=== PATIENT | male | born 1955 | race Caucasian/White ===

== ENCOUNTER 2017-05-31 05:52 | Day surgery (SDC) | payer BC ==
[2017-05-31] MEDS ORDERED: Lactated Ringers 1,000 ML PRIMARY IV ONE ×2 (06:01→07:44)
[2017-05-31] MEDS ORDERED: Clindamycin 900mg (Premix) 50 ML IV ONE (06:01)
[2017-05-31] MEDS ORDERED: LIDOCAINE W/ SODIUM BICARB 0.5 ML SYR ONE (06:01)
[2017-05-31] MEDS ORDERED: Lidocaine Inj 1% 20 ML ONE (06:54)
[2017-05-31] MEDS ORDERED: BUPivacaine Inj 0.5% PF (5mg/ml) 10ml vial ONE ×2 (06:54→09:30)
[2017-05-31] MEDS ORDERED: DEXAMETHASONE PF 10 MG/1 ML VIAL ONE (07:03)
[2017-05-31] MEDS ORDERED: ONDANSETRON 4 MG/2 ML VIAL ONE (07:03)
[2017-05-31] MEDS ORDERED: PANTOPRAZOLE IV 40 MG VIAL ONE (07:04)
[2017-05-31] MEDS ORDERED: LIDOCAINE 2%/ EPI 1:200,000 - 20 ML VIAL ONE (07:08)
[2017-05-31] MEDS ORDERED: DEXAMETHASONE SOD PHOSPHATE 4 MG/1 ML VIAL ONE (07:09)
[2017-05-31] MEDS ORDERED: BUPivacaine Inj 0.5% PF (5mg/ml) 30ml vial ONE (07:09)
[2017-05-31] MEDS ORDERED: fentaNYL Inj 100 MCG/2 ML VIAL ONE (07:09)
[2017-05-31] MEDS ORDERED: MIDAZOLAM 5 MG/1 ML ONE (07:09)
[2017-05-31] MEDS ORDERED: IPRATROPIUM/ALBUTEROL SULFATE 3 ML NEB NEB ONE ×3 (07:16→13:03)
[2017-05-31] MEDS ORDERED: Sodium Chloride 0.9% 1,000 ML ONE (08:16)
--- NOTE | 2017-05-31 08:36 | CRNA.PROCE ---
Nerve Block Documentation - - Type of Nerve Block Used: Right Popliteal Fossa Block Position for Nerve Block: Prone Moniters Used During Block: EKG, SPO2, NIBP Oxygen Sumpplented: Yes Sedation Used - Enter Amount in Comment Field: Midazolam (mg): Yes (3mg), Fentanyl (mcg): Yes (50mg) Skin Prep Used: ChloroPrep Draped: No Technique: Nerve Stimulator Nerve Block Needle Used: 100 mm ProBlk II Stimulation Hz: 2 Stimulation Staring mA: 1.4 Stimulation Ending mA: 0.48 Local Anesthetic - Enter Amt in Comment Field: 0.5 % Bupivacaine Plain (mL): Yes (20ml), 2 % Xylocaine with Epinephrine 1:200,000 (mL): Yes (20ml) Additives to Nerve Blocks: Dexamethasone (mg): Yes (8mg(2ml))
[2017-05-31 10:11] VITALS: RESP 20
[2017-05-31] MEDS ORDERED: NORMAL SALINE 10 ML SYRINGE FLUSH IVP PRN (10:17)
--- NOTE | 2017-05-31 10:48 | GEN.OPNOTE ---
Operative Report Surgeon: Dr. John Pace DPM Anesthesia Type: Regional, Local, MAC Anesthesia Provider: Gerald Chan CRNA Surgery Date: 05/31/17 Preoperative Diagnosis: Painful neuroma second interspace right foot, possible neuroma third interspace with possible exploration interspace right foot. Plantar fasciitis right foot. Postoperative Diagnosis: Second interspace neuroma , plantar fascia. Rt foot. Procedure: 1.Second interspace neuroma excision. 2.Frederick plantar fascial procedure right foot Estimated Blood Loss (mL): 2 Description of Procedure: Under mild sedation and popliteal block the patient was wheeled to the operating room placed on operating table in the supine position. Foot was prepped scrubbed and draped in usual sterile manner. A Well-padded pneumatic ankle tourniquet was placed about the right ankle. Us the foot was esmarched and the ankle tourniquet was inflated. Attention was then directed the plantar fascia where a small grid was made and 11 blade was then used to make small percutaneous incision at each debbie approximately 10 pina were made each about 5 mm apart and a square grid was made over the thickened part of the plantar fascia where it inserts into the calcaneus plantarly. Once this was accomplished the radiofrequency wand was inserted in each of the small pinpoint incisions, the radiofrequency wand was then activated and used to percutaneously barba the plantar fascia. Attention was then directed to the dorsal aspect of the second interspace incision was deepened using sharp and blunt dissection care being taken to identify and retract all vital neurovascular structures down to the level of the interspace where after performing careful dissection the neuroma was visible visualized with its 2 branches going to the second and third digits. Both of these branches of the nerve were transected the nerve was dissected down to the interspace were was noted the nerve was pinched in between the second and third metatarsal heads and scarred into the heads the nerve was also scarred around the plantar surface of the heads and was tightly adhesed to the space between the second and third metatarsal heads showing that the nerve was diffusely pinched. With careful dissection we were able to free the nerve and transected distally. The area was then examined and a Allis forcept was used to grab the remaining nerve which was also transected distally there is noted to be no nerve left in the interspace. I did not explore the 3rd interspace. The surgery site was then closed with 4-0 Vicryl and 4-0 nylon. Local anesthesia consisting of 0.5% Marcaine and 1% lidocaine was then injected in about the heel second interspace and proximal to the second interspace.The patient tolerated the procedure well following a brief period of postoperative monitoring the patient will be discharged home with both written and oral postoperative instructions. Ankle tourniquet was deflated and proper hyperemic response was noted to the toes. Dry sterile dressing was then applied with Steri-Strips soft padding 4 x 4 gauze Kerlix and Coban. Patient is to follow-up in my office in approximately one week. Patient was given postoperative instructions. My phone number was also given to the patient he is to call if he has any questions or concerns.
--- NOTE | 2017-05-31 14:27 | OPS CRUTCH ---
Diagnosis : Right Plantar Fascia Release Referral Reason: Gait Training/Bariatric Walker/Short Cam Walker S: The patient states he has used a boot before, but not a walker. O: The patient ambulated 30 feet and was left in restroom with nursing. A: The patient tolerated ambulation well. He required verbal cues to slow down. P: No further therapy is indicated at this time. MTDD
[2017-05-31 16:03] VITALS: TEMP 98.2
== END 2017-05-31 12:12 | disposition home or self-care (01) ==
LOC: SDSC 05:52
PROVIDERS: ATTEND Podiatrist Foot & Ankle Surgery
DX: M79.671 Pain in right foot (principal); D36.13 Benign neoplasm of peripheral nerves and autonomic nervous system of lower limb, including hip; M20.41 Other hammer toe(s) (acquired), right foot; M72.2 Plantar fascial fibromatosis
CPT/HCPCS: 28008; 28080; 94640; 97116; E0147; J1100 ×2; J2250; J2405; J2704; J3010; J3490 ×3; J7620; L4360; S0077; J7030; J7120